=== PATIENT | male | born 1995 | race Caucasian/White ===

== ENCOUNTER 2018-04-04 18:21 | Emergency (ER) | payer SELFPAY ==
[~2018-04-04] VITALS: Ht 177.8 cm; Wt 72.6 kg
[2018-04-04] MEDS ORDERED: PENICILLIN VK500 MG PO (18:24)
[2018-04-04] MEDS ORDERED: NAPROSYN500 MG PO (18:24)
== END 2018-04-04 18:36 | disposition home or self-care (01) ==
LOC: ED 18:21
DX: K02.9 Dental caries, unspecified (principal)